=== PATIENT | male | born 1980 | race Caucasian/White ===

== ENCOUNTER 2021-03-10 02:03 | Inpatient (IN) | payer OTHER, SELFPAY ==
[2021-03-10] MEDS ORDERED: Fentanyl 100 MCG/2 ML VIAL ONE (02:14)
[2021-03-10 02:45] LABS: Hemoglobin 14.5 g/dL (14.0-18.0); Mean Corpuscular HGB CONC 34.8 g/dL (32.0-36.0); Mean Corpuscular Hemoglobin 31.2 pg (27.0-31.0); Mean Corpuscular Volume 89.6 fL (78.0-98.0); RBC Distribution Width 11.9 % (11.5-14.5); Red Blood Cell (RBC) Count 4.65 mill/uL (4.70-6.10)
[2021-03-10 02:46] LABS: ALT (SGPT) 86 U/L (8-55); AST (SGOT) 125 U/L (5-34); Albumin 3.9 g/dL (3.5-5.0); Alcohol 143 mg/dL (Less than 10); Alkaline Phosphatase 62 U/L (40-110); Anion Gap 16 mmol/L (10-20); BUN (Urea Nitrogen) 16 mg/dL (8.9-20.6); Bilirubin, Total 0.5 mg/dL (0.2-1.2); Calc. Creatinine Clearance 0 mL/min (70-130); Calcium 8.3 mg/dL (7.8-10.44); Carbon Dioxide 20 mmol/L (22-29); Chloride 107 mmol/L (98-107); Globulin 2.5 g/dL (2.4-3.5); Glucose 151 mg/dL (70-105); Lipase 13 U/L (8-78); Potassium 3.6 mmol/L (3.5-5.1); Protein, Total 6.4 g/dL (6.0-8.3); Sodium 139 mmol/L (136-145)
[2021-03-10] MEDS ORDERED: Ondansetron PF 4 MG/2 ML Vial ONE (02:49)
[2021-03-10] MEDS ORDERED: Morphine 4 MG/ML VIAL ONE ×2 (02:49→04:07)
[2021-03-10 02:54] LABS: Band 30 % (5-11); Lymphocytes 8 % (21-51); MDiff Complete? YES; Mean Platelet Volume 6.5 fL (7.4-10.4); Monocytes 1 % (0-10); Neutrophil 61 % (42-75); Platelet Count 317 thou/uL (130-400); White Blood Cell (WBC) Count 24.3 thou/uL (4.8-10.8)
[2021-03-10] MEDS ORDERED: hydrALAZINE 20 MG/ML VIAL SLOW IVP PRN (04:19)
[2021-03-10] MEDS ORDERED: TETANUS AND DIPHTHERIA TOX/PF 0.5 ML DISP.SYRIN IM ONE (04:19)
[2021-03-10] MEDS ORDERED: Dextrose 50% Abboject 50 ML SYRINGE SLOW IVP PRN (04:19)
[2021-03-10] MEDS ORDERED: Dextrose 5% in Water 1,000 ML IV PRN (04:19)
[2021-03-10] MEDS ORDERED: Cyclobenzaprine 10 MG TAB PO PRN (04:24)
[2021-03-10] MEDS ORDERED: Morphine 4 MG/ML VIAL SLOW IVP PRN (04:30)
[2021-03-10] MEDS: Sodium Chloride 0.9% 1,000 ML IV SCH ×3 (05:08→21:00)
[2021-03-10] MEDS: Acetaminophen 500 MG TAB PO SCH ×5 (05:13→23:58)
[2021-03-10] MEDS: Ketorolac Tromethamine 30 MG/ML VIAL IVP SCH ×3 (05:13→17:32)
[2021-03-10] MEDS: traMADol HCl 50 MG TAB PO SCH ×5 (05:14→23:57)
[2021-03-10 05:19] LABS: SARS-CoV-2 NAA Rapid Test Not Detected (NotDetected)
[2021-03-10 05:20] VITALS: BMI 30.9
[2021-03-10 05:40] LABS: Lactic Acid 2.8 mmol/L (0.5-2.2)
[2021-03-10] MEDS ORDERED: Boostrix 0.5 ML (Tdap) VIAL IM ONE (06:00)
[2021-03-10] MEDS: Senokot S 8.6-50 MG TAB PO SCH ×2 (08:46→20:57)
[2021-03-10] MEDS: Polyethylene Glycol 3350 17 GM Packet PO SCH (08:46)
[2021-03-10] MEDS: Famotidine/PF 20 mg/2ml Vial SLOW IVP SCH ×2 (08:47→20:57)
[2021-03-10] MEDS: Gabapentin 300 MG CAP PO SCH ×3 (08:47→20:57)
[2021-03-10 08:53] LABS: Amphetamine Not Detected (NotDetected); Barbiturates Screen Not Detected (NotDetected); Benzodiazepine Screen Not Detected (NotDetected); Cocaine Metabolite Screen Not Detected (NotDetected); Medtox Control Line Valid? VALID (VALID); Medtox Reader # READER 1; Methadone Not Detected (NotDetected); Methamphetamine Not Detected (NotDetected); Opiate Screen Detected (NotDetected); Oxycodone Screen Not Detected (NotDetected); Phencyclidine (PCP) Not Detected (NotDetected); THC/Cannabinoid Screen Detected (NotDetected); Tricyclic Screen Not Detected (NotDetected)
[2021-03-10] MEDS: Folic Acid 1 MG TAB PO SCH (09:24)
[2021-03-10] MEDS: Thiamine 100 MG TAB PO SCH (09:24)
[2021-03-10] MEDS: Multivit, Therapeutic 1 TAB PO SCH (09:24)
[2021-03-10] MEDS ORDERED: Iopamidol-370 76% 500 ML 1 ML ONE (09:56)
[2021-03-10] MEDS ORDERED: Lidocaine 1% (PF) 30 ML VIAL ONE (11:03)
[2021-03-10] MEDS ORDERED: Ketorolac Tromethamine 30 MG/ML VIAL IVP SCH (11:30)
[2021-03-10] MEDS: traMADol HCl 50 MG TAB PO PRN (18:44)
[2021-03-11 03:53] LABS: #Eosinphils 0.1 thou/uL (0.0-0.7); #Lymphocytes 1.7 thou/uL (1.20-3.40); #Monocytes 0.9 thou/uL (0.11-0.59); #Neutrophils 6.7 thou/uL (1.40-6.50); %Basophils 0.1 % (0.0-1.0); %Eosinophils 0.5 % (0.0-10.0); %Lymphocytes 18.4 % (21.0-51.0); %Monocytes 9.8 % (0.0-10.0); %Neutrophils 71.2 % (42.0-75.0); Hemoglobin 11.7 g/dL (14.0-18.0); Mean Corpuscular HGB CONC 33.9 g/dL (32.0-36.0); Mean Corpuscular Hemoglobin 30.8 pg (27.0-31.0); Mean Corpuscular Volume 90.9 fL (78.0-98.0); Mean Platelet Volume 6.5 fL (7.4-10.4); Platelet Count 188 thou/uL (130-400); RBC Distribution Width 12.4 % (11.5-14.5); Red Blood Cell (RBC) Count 3.79 mill/uL (4.70-6.10); White Blood Cell (WBC) Count 9.4 thou/uL (4.8-10.8)
[2021-03-11] MEDS: traMADol HCl 50 MG TAB PO PRN (04:08)
[2021-03-11 04:13] LABS: Anion Gap 11 mmol/L (10-20); BUN (Urea Nitrogen) 15 mg/dL (8.9-20.6); Calc. Creatinine Clearance 207 mL/min (70-130); Carbon Dioxide 24 mmol/L (22-29); Chloride 109 mmol/L (98-107); Glucose 127 mg/dL (70-105); Magnesium 2.3 mg/dL (1.6-2.6); Phosphorus 2.7 mg/dL (2.3-4.7); Potassium 4.2 mmol/L (3.5-5.1); Sodium 140 mmol/L (136-145)
[2021-03-11] MEDS: traMADol HCl 50 MG TAB PO SCH ×3 (06:16→17:23)
[2021-03-11] MEDS: Acetaminophen 500 MG TAB PO SCH ×3 (06:17→17:24)
[2021-03-11] MEDS: Sodium Chloride 0.9% 1,000 ML IV SCH (06:17)
[2021-03-11] MEDS: Senokot S 8.6-50 MG TAB PO SCH ×2 (08:16→22:29)
[2021-03-11] MEDS: Gabapentin 300 MG CAP PO SCH (08:16)
[2021-03-11] MEDS: Famotidine/PF 20 mg/2ml Vial SLOW IVP SCH (08:16)
[2021-03-11] MEDS: Polyethylene Glycol 3350 17 GM Packet PO SCH (08:16)
[2021-03-11] MEDS: Multivit, Therapeutic 1 TAB PO SCH (08:17)
[2021-03-11] MEDS: Thiamine 100 MG TAB PO SCH (08:17)
[2021-03-11] MEDS: Folic Acid 1 MG TAB PO SCH (08:17)
[2021-03-11] MEDS ORDERED: Enoxaparin Sodium 40 MG/0.4 ML SYRINGE SC SCH (09:00)
[2021-03-11] MEDS: Famotidine 20 MG TAB PO SCH ×2 (09:18→22:29)
[2021-03-11] MEDS: Ondansetron PF 4 MG/2 ML Vial IVP PRN (13:02)
[2021-03-11] MEDS ORDERED: Ibuprofen 200 MG TAB PO SCH (14:00)
[2021-03-11] MEDS: Ketorolac Tromethamine 30 MG/ML VIAL IVP SCH (17:23)
[2021-03-11] MEDS: Pregabalin 75 MG CAP PO SCH (22:28)
[2021-03-12] MEDS: traMADol HCl 50 MG TAB PO SCH ×5 (00:29→23:23)
[2021-03-12] MEDS: Acetaminophen 500 MG TAB PO SCH ×5 (00:30→23:22)
[2021-03-12] MEDS: Ketorolac Tromethamine 30 MG/ML VIAL IVP SCH ×2 (00:30→05:09)
[2021-03-12 07:02] LABS: #Eosinphils 0.1 thou/uL (0.0-0.7); #Lymphocytes 2.2 thou/uL (1.20-3.40); #Monocytes 0.9 thou/uL (0.11-0.59); #Neutrophils 8.2 thou/uL (1.40-6.50); %Basophils 0.1 % (0.0-1.0); %Eosinophils 0.5 % (0.0-10.0); %Lymphocytes 19.3 % (21.0-51.0); %Neutrophils 72.1 % (42.0-75.0); Hemoglobin 9.5 g/dL (14.0-18.0); Mean Corpuscular HGB CONC 34.7 g/dL (32.0-36.0); Mean Corpuscular Hemoglobin 31.5 pg (27.0-31.0); Mean Corpuscular Volume 90.8 fL (78.0-98.0); Mean Platelet Volume 6.6 fL (7.4-10.4); Platelet Count 222 thou/uL (130-400); RBC Distribution Width 12.3 % (11.5-14.5); Red Blood Cell (RBC) Count 3.01 mill/uL (4.70-6.10); White Blood Cell (WBC) Count 11.3 thou/uL (4.8-10.8)
[2021-03-12 07:26] LABS: Anion Gap 11 mmol/L (10-20); BUN (Urea Nitrogen) 20 mg/dL (8.9-20.6); Calc. Creatinine Clearance 210 mL/min (70-130); Calcium 8.3 mg/dL (7.8-10.44); Carbon Dioxide 26 mmol/L (22-29); Chloride 107 mmol/L (98-107); Glucose 111 mg/dL (70-105); Potassium 4.3 mmol/L (3.5-5.1); Sodium 140 mmol/L (136-145)
[2021-03-12] MEDS: Polyethylene Glycol 3350 17 GM Packet PO SCH (08:25)
[2021-03-12] MEDS: Enoxaparin Sodium 40 MG/0.4 ML SYRINGE SC SCH (08:25)
[2021-03-12] MEDS: Ibuprofen 200 MG TAB PO SCH ×3 (08:26→20:57)
[2021-03-12] MEDS: Folic Acid 1 MG TAB PO SCH (08:26)
[2021-03-12] MEDS: Senokot S 8.6-50 MG TAB PO SCH ×2 (08:26→20:57)
[2021-03-12] MEDS: Multivit, Therapeutic 1 TAB PO SCH (08:26)
[2021-03-12] MEDS: Famotidine 20 MG TAB PO SCH ×2 (08:26→20:57)
[2021-03-12] MEDS: Thiamine 100 MG TAB PO SCH (08:26)
[2021-03-12] MEDS: Pregabalin 75 MG CAP PO SCH ×2 (08:27→20:56)
[2021-03-12] MEDS: cloNIDine 0.1 MG TAB PO SCH ×3 (11:47→23:23)
[2021-03-13] MEDS: Ibuprofen 200 MG TAB PO SCH ×4 (02:33→19:52)
[2021-03-13] MEDS: traMADol HCl 50 MG TAB PO SCH ×4 (05:29→23:33)
[2021-03-13] MEDS: Acetaminophen 500 MG TAB PO SCH ×4 (05:30→23:33)
[2021-03-13] MEDS: cloNIDine 0.1 MG TAB PO SCH ×4 (05:30→23:34)
[2021-03-13 05:52] LABS: #Eosinphils 0.3 thou/uL (0.0-0.7); #Lymphocytes 2.3 thou/uL (1.20-3.40); #Monocytes 0.7 thou/uL (0.11-0.59); #Neutrophils 6.6 thou/uL (1.40-6.50); %Basophils 0.2 % (0.0-1.0); %Eosinophils 2.6 % (0.0-10.0); %Lymphocytes 23.3 % (21.0-51.0); %Monocytes 7.2 % (0.0-10.0); %Neutrophils 66.7 % (42.0-75.0); Hemoglobin 9.3 g/dL (14.0-18.0); Mean Corpuscular HGB CONC 33.3 g/dL (32.0-36.0); Mean Platelet Volume 6.4 fL (7.4-10.4); Platelet Count 267 thou/uL (130-400); RBC Distribution Width 12.6 % (11.5-14.5); Red Blood Cell (RBC) Count 2.99 mill/uL (4.70-6.10); White Blood Cell (WBC) Count 9.8 thou/uL (4.8-10.8)
[2021-03-13] MEDS: Thiamine 100 MG TAB PO SCH (08:24)
[2021-03-13] MEDS: Folic Acid 1 MG TAB PO SCH (08:24)
[2021-03-13] MEDS: Senokot S 8.6-50 MG TAB PO SCH ×2 (08:24→19:53)
[2021-03-13] MEDS: Famotidine 20 MG TAB PO SCH ×2 (08:24→19:52)
[2021-03-13] MEDS: Multivit, Therapeutic 1 TAB PO SCH (08:24)
[2021-03-13] MEDS: Enoxaparin Sodium 40 MG/0.4 ML SYRINGE SC SCH (08:25)
[2021-03-13] MEDS: Pregabalin 75 MG CAP PO SCH ×2 (08:25→19:52)
[2021-03-13] MEDS: Polyethylene Glycol 3350 17 GM Packet PO SCH (08:26)
[2021-03-13] MEDS ORDERED: Lidocaine 1% (PF) 30 ML VIAL ONE (09:09)
[2021-03-13] MEDS ORDERED: Lidocaine 1% (PF) 30 ML VIAL SC SCH (09:15)
[2021-03-13] MEDS ORDERED: Morphine 4 MG/ML VIAL SLOW IVP SCH (09:15)
[2021-03-13] MEDS ORDERED: CEFAZOLIN 1 GM VIAL SLOW IVP SCH (12:45)
[2021-03-13] MEDS ORDERED: Ketorolac Tromethamine 30 MG/ML VIAL IVP SCH (12:45)
[2021-03-13] MEDS ORDERED: CEFAZOLIN 2 GM in Premix Bag 1 BAG IVPB SCH (14:00)
[2021-03-13] MEDS: Cyclobenzaprine 10 MG TAB PO PRN ×2 (14:21→19:51)
[2021-03-13] MEDS: Ketorolac Tromethamine 30 MG/ML VIAL IVP SCH (20:33)
[2021-03-14] MEDS: Ibuprofen 200 MG TAB PO SCH ×4 (02:22→20:35)
[2021-03-14] MEDS: cloNIDine 0.1 MG TAB PO SCH ×4 (05:14→23:32)
[2021-03-14] MEDS: Acetaminophen 500 MG TAB PO SCH ×4 (05:14→23:30)
[2021-03-14] MEDS: traMADol HCl 50 MG TAB PO SCH ×4 (05:14→23:31)
[2021-03-14] MEDS: Thiamine 100 MG TAB PO SCH (08:19)
[2021-03-14] MEDS: Pregabalin 75 MG CAP PO SCH ×2 (08:19→20:35)
[2021-03-14] MEDS: Folic Acid 1 MG TAB PO SCH (08:20)
[2021-03-14] MEDS: Senokot S 8.6-50 MG TAB PO SCH ×2 (08:20→20:34)
[2021-03-14] MEDS: Multivit, Therapeutic 1 TAB PO SCH (08:20)
[2021-03-14] MEDS: Famotidine 20 MG TAB PO SCH ×2 (08:20→20:35)
[2021-03-14] MEDS: Polyethylene Glycol 3350 17 GM Packet PO SCH (08:21)
[2021-03-14] MEDS: Enoxaparin Sodium 40 MG/0.4 ML SYRINGE SC SCH (08:21)
[2021-03-14] MEDS: Cyclobenzaprine 10 MG TAB PO PRN ×2 (08:28→20:34)
[2021-03-14] MEDS ORDERED: Ondansetron ODT 8 MG TAB SL PRN (17:28)
[2021-03-14] MEDS: Ketorolac Tromethamine 30 MG/ML VIAL IVP SCH (20:32)
[2021-03-15] MEDS: Promethazine HCl 25 MG/ML VIAL IM PRN ×5 (03:13→22:46)
[2021-03-15] MEDS: Ibuprofen 200 MG TAB PO SCH ×4 (03:13→20:04)
[2021-03-15] MEDS: Ondansetron ODT 8 MG TAB SL PRN ×2 (06:43→20:05)
[2021-03-15] MEDS: cloNIDine 0.1 MG TAB PO SCH ×4 (06:44→22:47)
[2021-03-15] MEDS: traMADol HCl 50 MG TAB PO SCH ×4 (06:44→22:47)
[2021-03-15] MEDS: Acetaminophen 500 MG TAB PO SCH ×4 (06:45→22:47)
[2021-03-15] MEDS: Famotidine 20 MG TAB PO SCH ×2 (07:46→20:04)
[2021-03-15] MEDS: Senokot S 8.6-50 MG TAB PO SCH ×2 (07:46→20:04)
[2021-03-15] MEDS: Pregabalin 75 MG CAP PO SCH ×2 (07:46→20:04)
[2021-03-15] MEDS: Multivit, Therapeutic 1 TAB PO SCH (07:46)
[2021-03-15] MEDS: Thiamine 100 MG TAB PO SCH (07:46)
[2021-03-15] MEDS: Enoxaparin Sodium 40 MG/0.4 ML SYRINGE SC SCH (07:47)
[2021-03-15] MEDS: Polyethylene Glycol 3350 17 GM Packet PO SCH (07:47)
[2021-03-15] MEDS: Folic Acid 1 MG TAB PO SCH (07:47)
[2021-03-15] MEDS: Cyclobenzaprine 10 MG TAB PO PRN ×2 (09:14→16:08)
[2021-03-15] MEDS: Lactated Ringer's 1,000 ML IV SCH ×2 (13:03→22:48)
[2021-03-15] MEDS: Ketorolac Tromethamine 30 MG/ML VIAL IVP SCH (19:26)
[2021-03-16] MEDS ORDERED: Chloraseptic Spray 180 ml Bottle PO PRN (00:02)
[2021-03-16] MEDS ORDERED: Ketorolac Tromethamine 30 MG/ML VIAL IVP SCH (00:15)
[2021-03-16] MEDS: Morphine 2 MG/ML VIAL SLOW IVP PRN ×4 (00:16→23:59)
[2021-03-16] MEDS: Ondansetron PF 4 MG/2 ML Vial IVP PRN (00:31)
[2021-03-16] MEDS: traMADol HCl 50 MG TAB PO SCH ×4 (06:04→23:18)
[2021-03-16] MEDS: Ketorolac Tromethamine 30 MG/ML VIAL IVP SCH ×3 (06:04→17:15)
[2021-03-16] MEDS: cloNIDine 0.1 MG TAB PO SCH ×4 (06:04→23:18)
[2021-03-16] MEDS: Acetaminophen 500 MG TAB PO SCH ×4 (06:04→23:18)
[2021-03-16 06:12] LABS: #Eosinphils 0.1 thou/uL (0.0-0.7); #Lymphocytes 1.1 thou/uL (1.20-3.40); #Monocytes 1.7 thou/uL (0.11-0.59); #Neutrophils 13.8 thou/uL (1.40-6.50); %Basophils 0.2 % (0.0-1.0); %Eosinophils 0.8 % (0.0-10.0); %Lymphocytes 6.8 % (21.0-51.0); %Monocytes 9.9 % (0.0-10.0); %Neutrophils 82.4 % (42.0-75.0); Hemoglobin 10.8 g/dL (14.0-18.0); Mean Corpuscular HGB CONC 34.8 g/dL (32.0-36.0); Mean Corpuscular Hemoglobin 31.9 pg (27.0-31.0); Mean Corpuscular Volume 91.7 fL (78.0-98.0); Mean Platelet Volume 5.8 fL (7.4-10.4); Platelet Count 399 thou/uL (130-400); RBC Distribution Width 13.1 % (11.5-14.5); Red Blood Cell (RBC) Count 3.38 mill/uL (4.70-6.10); White Blood Cell (WBC) Count 16.7 thou/uL (4.8-10.8)
[2021-03-16 06:32] LABS: Anion Gap 13 mmol/L (10-20); BUN (Urea Nitrogen) 28 mg/dL (8.9-20.6); Calc. Creatinine Clearance 192 mL/min (70-130); Calcium 8.6 mg/dL (7.8-10.44); Carbon Dioxide 27 mmol/L (22-29); Chloride 104 mmol/L (98-107); Glucose 114 mg/dL (70-105); Phosphorus 4.8 mg/dL (2.3-4.7); Potassium 4.2 mmol/L (3.5-5.1); Sodium 140 mmol/L (136-145)
[2021-03-16] MEDS: Enoxaparin Sodium 40 MG/0.4 ML SYRINGE SC SCH (08:23)
[2021-03-16] MEDS: Pregabalin 75 MG CAP PO SCH ×2 (08:23→23:18)
[2021-03-16] MEDS: Famotidine 20 MG TAB PO SCH ×2 (08:23→23:18)
[2021-03-16] MEDS: Thiamine 100 MG TAB PO SCH (08:23)
[2021-03-16] MEDS: Multivit, Therapeutic 1 TAB PO SCH (08:23)
[2021-03-16] MEDS: Folic Acid 1 MG TAB PO SCH (08:23)
[2021-03-16] MEDS: Polyethylene Glycol 3350 17 GM Packet PO SCH (08:23)
[2021-03-16] MEDS: Senokot S 8.6-50 MG TAB PO SCH ×2 (08:23→23:18)
[2021-03-16] MEDS: Lactated Ringer's 1,000 ML IV SCH ×2 (08:56→17:15)
[2021-03-17] MEDS ORDERED: Morphine 2 MG/ML VIAL SLOW IVP SCH (01:00)
[2021-03-17] MEDS ORDERED: Morphine 4 MG/ML VIAL ONE (01:04)
[2021-03-17] MEDS ORDERED: Lactated Ringer's 500 ML IV SCH (01:30)
[2021-03-17] MEDS ORDERED: cefTRIAXone\\ROCEPHIN 1 GM in Sodium Chloride 0.9% 100 ML IVPB SCH (01:30)
[2021-03-17 01:31] LABS: Mean Corpuscular HGB CONC 34.7 g/dL (32.0-36.0); Mean Corpuscular Hemoglobin 32.2 pg (27.0-31.0); Mean Corpuscular Volume 92.7 fL (78.0-98.0); Mean Platelet Volume 5.9 fL (7.4-10.4); Platelet Count 417 thou/uL (130-400); RBC Distribution Width 13.4 % (11.5-14.5); Red Blood Cell (RBC) Count 3.12 mill/uL (4.70-6.10); White Blood Cell (WBC) Count 20.2 thou/uL (4.8-10.8)
[2021-03-17 01:42] LABS: Anion Gap 12 mmol/L (10-20); BUN (Urea Nitrogen) 28 mg/dL (8.9-20.6); Calc. Creatinine Clearance 177 mL/min (70-130); Calcium 8.5 mg/dL (7.8-10.44); Carbon Dioxide 32 mmol/L (22-29); Chloride 103 mmol/L (98-107); Glucose 119 mg/dL (70-105); Magnesium 2.1 mg/dL (1.6-2.6); Phosphorus 3.8 mg/dL (2.3-4.7); Potassium 3.9 mmol/L (3.5-5.1); Sodium 143 mmol/L (136-145)
[2021-03-17 01:44] LABS: Band 20 % (5-11); Eosinophils 1 % (0-10); Lymphocytes 3 % (21-51); MDiff Complete? YES; Monocytes 7 % (0-10); Neutrophil 69 % (42-75); Polychromasia SLIGHT = 2-3 cells (100X) (0-2/hpf); Toxic Granulation SLIGHT
[2021-03-17] MEDS ORDERED: Ketorolac Tromethamine 30 MG/ML VIAL IVP SCH (02:00)
[2021-03-17] MEDS: Morphine 4 MG/ML VIAL SLOW IVP PRN ×4 (06:11→21:23)
[2021-03-17] MEDS: Ketorolac Tromethamine 30 MG/ML VIAL IVP SCH ×5 (06:11→23:31)
[2021-03-17] MEDS: Acetaminophen 500 MG TAB PO SCH ×3 (06:29→17:32)
[2021-03-17] MEDS: Lactated Ringer's 1,000 ML IV SCH ×2 (06:29→18:10)
[2021-03-17] MEDS: traMADol HCl 50 MG TAB PO SCH ×3 (06:29→17:32)
[2021-03-17] MEDS: cloNIDine 0.1 MG TAB PO SCH ×3 (06:29→17:32)
[2021-03-17] MEDS: Enoxaparin Sodium 40 MG/0.4 ML SYRINGE SC SCH (09:54)
[2021-03-17] MEDS: Multivit, Therapeutic 1 TAB PO SCH (13:15)
[2021-03-17] MEDS: Senokot S 8.6-50 MG TAB PO SCH ×2 (13:15→22:17)
[2021-03-17] MEDS: Folic Acid 1 MG TAB PO SCH (13:15)
[2021-03-17] MEDS: Famotidine 20 MG TAB PO SCH ×2 (13:15→22:17)
[2021-03-17] MEDS: Polyethylene Glycol 3350 17 GM Packet PO SCH (13:15)
[2021-03-17] MEDS: Pregabalin 75 MG CAP PO SCH ×2 (13:15→22:17)
[2021-03-17] MEDS: Thiamine 100 MG TAB PO SCH (13:15)
[2021-03-17] MEDS: Piperacillin/Tazobactam 4.5 GM in Sodium Chloride 0.9% 100 ML IVPB SCH ×3 (13:25→23:30)
[2021-03-18] MEDS: Lactated Ringer's 1,000 ML IV SCH (00:44)
[2021-03-18] MEDS: cloNIDine 0.1 MG TAB PO SCH ×4 (01:11→15:31)
[2021-03-18] MEDS: Acetaminophen 500 MG TAB PO SCH ×5 (01:11→22:52)
[2021-03-18] MEDS: traMADol HCl 50 MG TAB PO SCH ×5 (01:11→22:51)
[2021-03-18] MEDS: Morphine 4 MG/ML VIAL SLOW IVP PRN ×3 (04:39→22:53)
[2021-03-18] MEDS: Piperacillin/Tazobactam 4.5 GM in Sodium Chloride 0.9% 100 ML IVPB SCH ×4 (04:40→22:52)
[2021-03-18] MEDS: Ketorolac Tromethamine 30 MG/ML VIAL IVP SCH (04:40)
[2021-03-18 06:08] LABS: Anion Gap 15 mmol/L (10-20); BUN (Urea Nitrogen) 37 mg/dL (8.9-20.6); Calc. Creatinine Clearance 159 mL/min (70-130); Calcium 8.4 mg/dL (7.8-10.44); Carbon Dioxide 36 mmol/L (22-29); Chloride 102 mmol/L (98-107); Glucose 109 mg/dL (70-105); Magnesium 2.7 mg/dL (1.6-2.6); Phosphorus 4.3 mg/dL (2.3-4.7); Potassium 3.1 mmol/L (3.5-5.1); Sodium 150 mmol/L (136-145)
[2021-03-18 06:14] LABS: Band 48 % (5-11); Hemoglobin 8.9 g/dL (14.0-18.0); Lymphocytes 4 % (21-51); MDiff Complete? YES; Mean Corpuscular Hemoglobin 31.3 pg (27.0-31.0); Mean Platelet Volume 6.4 fL (7.4-10.4); Monocytes 3 % (0-10); Neutrophil 45 % (42-75); Platelet Count 394 thou/uL (130-400); Red Blood Cell (RBC) Count 2.84 mill/uL (4.70-6.10)
[2021-03-18] MEDS ORDERED: Ondansetron PF 4 MG/2 ML Vial ONE ×2 (08:32→10:08)
[2021-03-18] MEDS ORDERED: Fentanyl 100 MCG/2 ML VIAL ONE ×3 (09:04→12:22)
[2021-03-18] MEDS ORDERED: Dexamethasone 4 mg/ml Vial ONE (09:18)
[2021-03-18] MEDS ORDERED: Bupivacaine PF 0.5% 30 ML VIAL ONE (09:18)
[2021-03-18] MEDS ORDERED: EPINEPHrine 1 MG/ML AMP ONE (09:18)
[2021-03-18] MEDS ORDERED: Fentanyl 250 MCG/5 ML VIAL ONE (09:31)
[2021-03-18] MEDS ORDERED: Succinylcholine 200 MG/10 ml SYRINGE FS ONE (10:08)
[2021-03-18] MEDS ORDERED: PROPOFOL 200 MG/20 ML VIAL ONE (10:08)
[2021-03-18] MEDS ORDERED: Glycopyrrolate 0.2 MG/ML 5 ML SYRINGE ONE (10:08)
[2021-03-18] MEDS ORDERED: Dexamethasone 20 MG/5 ML VIAL ONE (10:08)
[2021-03-18] MEDS ORDERED: Rocuronium Bromide 10 MG/ML (10ML VIAL) ONE (10:08)
[2021-03-18] MEDS ORDERED: Lidocaine 1% PF 5 ML VIAL ONE (10:08)
[2021-03-18] MEDS: Potassium Chloride 20 MEQ in Premix Bag 1 BAG IVPB SCH ×3 (11:19→15:34)
[2021-03-18] MEDS: Enoxaparin Sodium 40 MG/0.4 ML SYRINGE SC SCH (11:19)
[2021-03-18] MEDS: D5 1/2 NS w/20 mEq KCL 1,000 ML IV SCH ×2 (11:19→13:01)
[2021-03-18] MEDS: Folic Acid 1 MG TAB PO SCH (11:20)
[2021-03-18] MEDS: Multivit, Therapeutic 1 TAB PO SCH (11:20)
[2021-03-18] MEDS: Polyethylene Glycol 3350 17 GM Packet PO SCH (11:20)
[2021-03-18] MEDS: Famotidine 20 MG TAB PO SCH ×2 (11:20→22:51)
[2021-03-18] MEDS: Pregabalin 75 MG CAP PO SCH ×2 (11:20→22:52)
[2021-03-18] MEDS: Senokot S 8.6-50 MG TAB PO SCH ×2 (11:21→22:51)
[2021-03-18] MEDS: Thiamine 100 MG TAB PO SCH (11:21)
[2021-03-18] MEDS: VANCOMYCIN 1.25 GM/250 ML BAG 1.25 GM in Premix Bag 1 BAG IVPB SCH ×2 (11:21→17:35)
[2021-03-18] MEDS ORDERED: Ondansetron HCl/PF 4 MG/2 ML Vial IVP PRN (11:51)
[2021-03-18] MEDS ORDERED: Promethazine HCl 25 MG/ML VIAL SLOW IVP PRN (11:51)
[2021-03-18] MEDS ORDERED: HYDROmorphone 2 MG/ML VIAL SLOW IVP PRN (11:51)
[2021-03-18] MEDS ORDERED: Promethazine HCl 25 MG/ML VIAL IM PRN (11:51)
[2021-03-18] MEDS: Neostigmine 0.5 MG in Admixture Fee 1 EACH SC SCH ×2 (12:58→17:44)
[2021-03-18] MEDS: Morphine 2 MG/ML VIAL SLOW IVP PRN (13:30)
[2021-03-19] MEDS: VANCOMYCIN 1.25 GM/250 ML BAG 1.25 GM in Premix Bag 1 BAG IVPB SCH ×2 (00:56→08:30)
[2021-03-19] MEDS: cloNIDine 0.1 MG TAB PO SCH ×4 (00:57→18:31)
[2021-03-19] MEDS: Neostigmine 0.5 MG in Admixture Fee 1 EACH SC SCH ×2 (00:57→06:44)
[2021-03-19] MEDS: D5 1/2 NS w/20 mEq KCL 1,000 ML IV SCH ×4 (04:30→22:17)
[2021-03-19] MEDS: traMADol HCl 50 MG TAB PO SCH ×3 (06:44→18:32)
[2021-03-19] MEDS: Acetaminophen 500 MG TAB PO SCH ×3 (06:44→18:31)
[2021-03-19] MEDS: Piperacillin/Tazobactam 4.5 GM in Sodium Chloride 0.9% 100 ML IVPB SCH (06:45)
[2021-03-19] MEDS: Senokot S 8.6-50 MG TAB PO SCH ×2 (08:27→22:13)
[2021-03-19] MEDS: Enoxaparin Sodium 40 MG/0.4 ML SYRINGE SC SCH (08:27)
[2021-03-19] MEDS: Famotidine 20 MG TAB PO SCH (08:27)
[2021-03-19] MEDS: Pregabalin 75 MG CAP PO SCH ×2 (08:27→22:12)
[2021-03-19] MEDS: Multivit, Therapeutic 1 TAB PO SCH (08:28)
[2021-03-19] MEDS: Folic Acid 1 MG TAB PO SCH (08:28)
[2021-03-19] MEDS: Thiamine 100 MG TAB PO SCH (08:29)
[2021-03-19] MEDS: Morphine 4 MG/ML VIAL SLOW IVP PRN ×2 (08:32→16:58)
[2021-03-19 08:43] LABS: Vancomycin, Trough 11.1 ug/mL
[2021-03-19 08:49] LABS: Anion Gap 11 mmol/L (10-20); BUN (Urea Nitrogen) 31 mg/dL (8.9-20.6); Calc. Creatinine Clearance 198 mL/min (70-130); Calcium 8.1 mg/dL (7.8-10.44); Carbon Dioxide 33 mmol/L (22-29); Chloride 109 mmol/L (98-107); Glucose 127 mg/dL (70-105); Magnesium 2.5 mg/dL (1.6-2.6); Phosphorus 3.3 mg/dL (2.3-4.7); Potassium 3.6 mmol/L (3.5-5.1); Sodium 149 mmol/L (136-145)
[2021-03-19 09:03] LABS: Band 10 % (5-11); Hemoglobin 8.3 g/dL (14.0-18.0); Lymphocytes 5 % (21-51); MDiff Complete? YES; Mean Corpuscular HGB CONC 32.6 g/dL (32.0-36.0); Mean Platelet Volume 6.6 fL (7.4-10.4); Monocytes 3 % (0-10); Neutrophil 81 % (42-75); Platelet Count 418 thou/uL (130-400); Platelet Morphology Comment Appears Increased; RBC Morphology Normal; Reactive Lymphocytes 1 % (0-10); Red Blood Cell (RBC) Count 2.67 mill/uL (4.70-6.10); White Blood Cell (WBC) Count 19.7 thou/uL (4.8-10.8)
[2021-03-19] MEDS: cefTRIAXone\\ROCEPHIN 2 GM in Sodium Chloride 0.9% 100 ML IVPB SCH (09:23)
[2021-03-19] MEDS: Polyethylene Glycol 3350 17 GM Packet PO SCH (11:32)
[2021-03-19] MEDS ORDERED: Vancomycin 1.5 GRAM/300 ML BAG 1.5 GM in Premix Bag 1 BAG IVPB SCH (17:00)
[2021-03-19] MEDS: Pantoprazole 40 MG VIAL IVP SCH (22:14)
[2021-03-20] MEDS: Acetaminophen 500 MG TAB PO SCH ×4 (00:05→17:59)
[2021-03-20] MEDS: traMADol HCl 50 MG TAB PO SCH ×4 (00:05→17:59)
[2021-03-20] MEDS: cloNIDine 0.1 MG TAB PO SCH ×4 (00:06→17:58)
[2021-03-20] MEDS: D5 1/2 NS w/20 mEq KCL 1,000 ML IV SCH ×3 (05:47→19:18)
[2021-03-20] MEDS: Morphine 4 MG/ML VIAL SLOW IVP PRN (05:56)
[2021-03-20] MEDS: Sulfameth/Trimethoprim DS 800-160mg TAB PO SCH ×2 (09:50→20:51)
[2021-03-20] MEDS: Pregabalin 75 MG CAP PO SCH ×2 (09:50→20:50)
[2021-03-20] MEDS: Enoxaparin Sodium 40 MG/0.4 ML SYRINGE SC SCH (09:50)
[2021-03-20] MEDS: Senokot S 8.6-50 MG TAB PO SCH ×2 (09:51→20:50)
[2021-03-20] MEDS: Thiamine 100 MG TAB PO SCH (09:51)
[2021-03-20] MEDS: Folic Acid 1 MG TAB PO SCH (09:51)
[2021-03-20] MEDS: Pantoprazole 40 MG VIAL IVP SCH ×2 (09:51→20:52)
[2021-03-20] MEDS: Multivit, Therapeutic 1 TAB PO SCH (09:51)
[2021-03-20] MEDS: cefTRIAXone\\ROCEPHIN 2 GM in Sodium Chloride 0.9% 100 ML IVPB SCH (09:52)
[2021-03-20] MEDS: Polyethylene Glycol 3350 17 GM Packet PO SCH (09:53)
[2021-03-20] MEDS: Cyclobenzaprine 10 MG TAB PO PRN (16:32)
[2021-03-21] MEDS: cloNIDine 0.1 MG TAB PO SCH ×4 (00:14→17:44)
[2021-03-21] MEDS: traMADol HCl 50 MG TAB PO SCH ×4 (00:15→17:45)
[2021-03-21] MEDS: Acetaminophen 500 MG TAB PO SCH ×4 (00:16→17:44)
[2021-03-21] MEDS: Cyclobenzaprine 10 MG TAB PO PRN (03:50)
[2021-03-21] MEDS: D5 1/2 NS w/20 mEq KCL 1,000 ML IV SCH ×2 (06:39→09:21)
[2021-03-21] MEDS: Polyethylene Glycol 3350 17 GM Packet PO SCH (09:22)
[2021-03-21] MEDS: Multivit, Therapeutic 1 TAB PO SCH (09:23)
[2021-03-21] MEDS: Folic Acid 1 MG TAB PO SCH (09:23)
[2021-03-21] MEDS: Senokot S 8.6-50 MG TAB PO SCH ×2 (09:23→20:44)
[2021-03-21] MEDS: Pregabalin 75 MG CAP PO SCH ×2 (09:24→20:44)
[2021-03-21] MEDS: Sulfameth/Trimethoprim DS 800-160mg TAB PO SCH ×2 (09:24→20:44)
[2021-03-21] MEDS: Thiamine 100 MG TAB PO SCH (09:24)
[2021-03-21] MEDS: Enoxaparin Sodium 40 MG/0.4 ML SYRINGE SC SCH (09:24)
[2021-03-21] MEDS: Pantoprazole 40 MG VIAL IVP SCH ×2 (09:25→20:45)
[2021-03-22] MEDS ORDERED: traMADol HCl 50 MG TAB PO SCH (00:30)
[2021-03-22] MEDS: Acetaminophen 500 MG TAB PO SCH ×5 (00:46→23:15)
[2021-03-22] MEDS: traMADol HCl 50 MG TAB PO SCH ×5 (00:47→23:16)
[2021-03-22] MEDS: cloNIDine 0.1 MG TAB PO SCH ×5 (00:53→23:17)
[2021-03-22 06:39] LABS: #Eosinphils 0.4 thou/uL (0.0-0.7); #Lymphocytes 2.2 thou/uL (1.20-3.40); #Monocytes 1.5 thou/uL (0.11-0.59); #Neutrophils 14.1 thou/uL (1.40-6.50); %Basophils 0.2 % (0.0-1.0); %Eosinophils 2.2 % (0.0-10.0); %Lymphocytes 11.9 % (21.0-51.0); %Monocytes 8.1 % (0.0-10.0); %Neutrophils 77.6 % (42.0-75.0); Hemoglobin 8.5 g/dL (14.0-18.0); Mean Corpuscular Hemoglobin 30.6 pg (27.0-31.0); Mean Corpuscular Volume 92.7 fL (78.0-98.0); Mean Platelet Volume 6.6 fL (7.4-10.4); Platelet Count 510 thou/uL (130-400); RBC Distribution Width 13.8 % (11.5-14.5); Red Blood Cell (RBC) Count 2.77 mill/uL (4.70-6.10); White Blood Cell (WBC) Count 18.2 thou/uL (4.8-10.8)
[2021-03-22 07:02] LABS: Anion Gap 10 mmol/L (10-20); BUN (Urea Nitrogen) 14 mg/dL (8.9-20.6); Calc. Creatinine Clearance 216 mL/min (70-130); Calcium 7.8 mg/dL (7.8-10.44); Carbon Dioxide 23 mmol/L (22-29); Chloride 105 mmol/L (98-107); Glucose 80 mg/dL (70-105); Magnesium 1.9 mg/dL (1.6-2.6); Phosphorus 3.7 mg/dL (2.3-4.7); Potassium 4.3 mmol/L (3.5-5.1); Sodium 134 mmol/L (136-145)
[2021-03-22] MEDS: Multivit, Therapeutic 1 TAB PO SCH (08:51)
[2021-03-22] MEDS: Ascorbic Acid 500 mg Chewable Tablet PO SCH ×2 (08:52→20:39)
[2021-03-22] MEDS: Ibuprofen 200 MG TAB PO SCH ×3 (08:52→20:40)
[2021-03-22] MEDS: Saccharomyces boulardii 250 MG CAP PO SCH (08:52)
[2021-03-22] MEDS: Ferrous Sulfate 325 MG TAB PO SCH ×2 (08:52→17:43)
[2021-03-22] MEDS: Folic Acid 1 MG TAB PO SCH (08:52)
[2021-03-22] MEDS: Thiamine 100 MG TAB PO SCH (08:52)
[2021-03-22] MEDS: Pregabalin 75 MG CAP PO SCH ×2 (08:53→20:41)
[2021-03-22] MEDS: Pantoprazole 40 MG VIAL IVP SCH ×2 (08:53→20:41)
[2021-03-22] MEDS: Senokot S 8.6-50 MG TAB PO SCH ×2 (08:54→20:38)
[2021-03-22] MEDS: Enoxaparin Sodium 40 MG/0.4 ML SYRINGE SC SCH (08:54)
[2021-03-22] MEDS: Sulfameth/Trimethoprim DS 800-160mg TAB PO SCH ×2 (08:54→20:39)
[2021-03-22] MEDS: Cyclobenzaprine 10 MG TAB PO PRN ×2 (08:54→22:27)
[2021-03-22] MEDS: Polyethylene Glycol 3350 17 GM Packet PO SCH (08:58)
[2021-03-23] MEDS: Ibuprofen 200 MG TAB PO SCH ×4 (03:27→20:20)
[2021-03-23] MEDS: Acetaminophen 500 MG TAB PO SCH ×4 (05:23→23:32)
[2021-03-23] MEDS: traMADol HCl 50 MG TAB PO SCH ×4 (05:23→23:32)
[2021-03-23] MEDS: cloNIDine 0.1 MG TAB PO SCH ×4 (05:24→23:32)
[2021-03-23 08:23] LABS: #Eosinphils 0.4 thou/uL (0.0-0.7); #Lymphocytes 1.8 thou/uL (1.20-3.40); #Monocytes 1.1 thou/uL (0.11-0.59); #Neutrophils 9.1 thou/uL (1.40-6.50); %Basophils 0.3 % (0.0-1.0); %Eosinophils 3.2 % (0.0-10.0); %Lymphocytes 14.7 % (21.0-51.0); %Monocytes 8.8 % (0.0-10.0); Hemoglobin 9.3 g/dL (14.0-18.0); Mean Corpuscular HGB CONC 32.6 g/dL (32.0-36.0); Mean Corpuscular Hemoglobin 30.6 pg (27.0-31.0); Mean Platelet Volume 6.3 fL (7.4-10.4); Platelet Count 594 thou/uL (130-400); RBC Distribution Width 13.6 % (11.5-14.5); Red Blood Cell (RBC) Count 3.03 mill/uL (4.70-6.10); White Blood Cell (WBC) Count 12.5 thou/uL (4.8-10.8)
[2021-03-23 08:41] LABS: Anion Gap 10 mmol/L (10-20); BUN (Urea Nitrogen) 12 mg/dL (8.9-20.6); Calc. Creatinine Clearance 204 mL/min (70-130); Carbon Dioxide 25 mmol/L (22-29); Chloride 105 mmol/L (98-107); Glucose 80 mg/dL (70-105); Potassium 4.2 mmol/L (3.5-5.1); Sodium 136 mmol/L (136-145)
[2021-03-23] MEDS: Enoxaparin Sodium 40 MG/0.4 ML SYRINGE SC SCH (09:07)
[2021-03-23] MEDS: Saccharomyces boulardii 250 MG CAP PO SCH (09:08)
[2021-03-23] MEDS: Multivit, Therapeutic 1 TAB PO SCH (09:08)
[2021-03-23] MEDS: Sulfameth/Trimethoprim DS 800-160mg TAB PO SCH ×2 (09:08→20:22)
[2021-03-23] MEDS: Ferrous Sulfate 325 MG TAB PO SCH ×2 (09:08→17:44)
[2021-03-23] MEDS: Ascorbic Acid 500 mg Chewable Tablet PO SCH ×2 (09:09→20:20)
[2021-03-23] MEDS: Pregabalin 75 MG CAP PO SCH ×2 (09:09→20:21)
[2021-03-23] MEDS: Thiamine 100 MG TAB PO SCH (09:09)
[2021-03-23] MEDS: Pantoprazole 40 MG VIAL IVP SCH ×2 (09:09→20:21)
[2021-03-23] MEDS: Folic Acid 1 MG TAB PO SCH (09:09)
[2021-03-23] MEDS: Polyethylene Glycol 3350 17 GM Packet PO SCH (10:32)
[2021-03-23] MEDS: Senokot S 8.6-50 MG TAB PO SCH ×2 (10:32→20:21)
[2021-03-23] MEDS: Cyclobenzaprine 10 MG TAB PO PRN (20:22)
[2021-03-24] MEDS: Ibuprofen 200 MG TAB PO SCH ×4 (02:51→20:16)
[2021-03-24] MEDS: Acetaminophen 500 MG TAB PO SCH ×3 (05:11→17:38)
[2021-03-24] MEDS: traMADol HCl 50 MG TAB PO SCH ×3 (05:11→17:38)
[2021-03-24] MEDS: cloNIDine 0.1 MG TAB PO SCH ×3 (05:11→17:38)
[2021-03-24 05:41] LABS: #Eosinphils 0.3 thou/uL (0.0-0.7); #Lymphocytes 1.9 thou/uL (1.20-3.40); #Neutrophils 5.9 thou/uL (1.40-6.50); %Basophils 0.4 % (0.0-1.0); %Eosinophils 3.4 % (0.0-10.0); %Monocytes 10.9 % (0.0-10.0); %Neutrophils 64.3 % (42.0-75.0); Hemoglobin 8.4 g/dL (14.0-18.0); Mean Corpuscular HGB CONC 33.9 g/dL (32.0-36.0); Mean Corpuscular Hemoglobin 31.8 pg (27.0-31.0); Mean Corpuscular Volume 93.8 fL (78.0-98.0); Mean Platelet Volume 6.6 fL (7.4-10.4); Platelet Count 626 thou/uL (130-400); RBC Distribution Width 13.3 % (11.5-14.5); Red Blood Cell (RBC) Count 2.63 mill/uL (4.70-6.10); White Blood Cell (WBC) Count 9.1 thou/uL (4.8-10.8)
[2021-03-24] MEDS: Saccharomyces boulardii 250 MG CAP PO SCH (09:58)
[2021-03-24] MEDS: Pregabalin 75 MG CAP PO SCH ×2 (09:58→20:16)
[2021-03-24] MEDS: Ascorbic Acid 500 mg Chewable Tablet PO SCH ×2 (09:58→20:15)
[2021-03-24] MEDS: Thiamine 100 MG TAB PO SCH (09:58)
[2021-03-24] MEDS: Sulfameth/Trimethoprim DS 800-160mg TAB PO SCH ×2 (09:58→20:15)
[2021-03-24] MEDS: Ferrous Sulfate 325 MG TAB PO SCH ×2 (09:58→17:38)
[2021-03-24] MEDS: Multivit, Therapeutic 1 TAB PO SCH (09:59)
[2021-03-24] MEDS: Enoxaparin Sodium 40 MG/0.4 ML SYRINGE SC SCH (09:59)
[2021-03-24] MEDS: Pantoprazole 40 MG VIAL IVP SCH ×2 (09:59→20:16)
[2021-03-24] MEDS: Folic Acid 1 MG TAB PO SCH (09:59)
[2021-03-24] MEDS: Polyethylene Glycol 3350 17 GM Packet PO SCH (10:47)
[2021-03-24] MEDS: Senokot S 8.6-50 MG TAB PO SCH ×2 (10:47→20:28)
[2021-03-24] MEDS: Silver Sulfadiazine 50 GM TUBE TOP SCH ×2 (10:47→20:17)
[2021-03-24] MEDS ORDERED: Aspirin 81 mg Enteric Coated Tablet PO SCH (17:30)
[2021-03-24] MEDS: Aspirin 81 mg Enteric Coated Tablet PO SCH (20:15)
[2021-03-25] MEDS: Acetaminophen 500 MG TAB PO SCH ×3 (00:03→12:05)
[2021-03-25] MEDS: cloNIDine 0.1 MG TAB PO SCH ×3 (00:03→12:04)
[2021-03-25] MEDS: traMADol HCl 50 MG TAB PO SCH ×3 (00:04→12:05)
[2021-03-25] MEDS: Ibuprofen 200 MG TAB PO SCH ×3 (02:34→15:53)
[2021-03-25] MEDS: Saccharomyces boulardii 250 MG CAP PO SCH (08:35)
[2021-03-25] MEDS: Pregabalin 75 MG CAP PO SCH (08:36)
[2021-03-25] MEDS: Aspirin 81 mg Enteric Coated Tablet PO SCH (08:36)
[2021-03-25] MEDS: Sulfameth/Trimethoprim DS 800-160mg TAB PO SCH (08:36)
[2021-03-25] MEDS: Multivit, Therapeutic 1 TAB PO SCH (08:36)
[2021-03-25] MEDS: Pantoprazole 40 MG VIAL IVP SCH (08:37)
[2021-03-25] MEDS: Ascorbic Acid 500 mg Chewable Tablet PO SCH (08:37)
[2021-03-25] MEDS: Silver Sulfadiazine 50 GM TUBE TOP SCH (08:37)
[2021-03-25] MEDS: Folic Acid 1 MG TAB PO SCH (08:37)
[2021-03-25] MEDS: Enoxaparin Sodium 40 MG/0.4 ML SYRINGE SC SCH (08:37)
[2021-03-25] MEDS: Thiamine 100 MG TAB PO SCH (08:37)
[2021-03-25] MEDS: Polyethylene Glycol 3350 17 GM Packet PO SCH (08:38)
[2021-03-25] MEDS: Senokot S 8.6-50 MG TAB PO SCH (08:38)
[2021-03-25] MEDS: Ferrous Sulfate 325 MG TAB PO SCH (10:02)
[2021-03-25] MEDS: Cyclobenzaprine 10 MG TAB PO PRN (10:02)
[2021-03-25 11:20] VITALS: BP 139/72; TEMP 98
== END 2021-03-25 15:58 | disposition home or self-care (01) | DRG 163 ==
LOC: ERS 02:03 → CCU 03:49 → SURG B 03-11 17:19
PROVIDERS: ADMIT Surgery; ATTEND Surgery
PROC: 0W9B30Z Drainage of Left Pleural Cavity with Drainage Device, Percutaneous Approach (ICD-10-PCS; 2021-03-10)
PROC: 0W9930Z Drainage of Right Pleural Cavity with Drainage Device, Percutaneous Approach (ICD-10-PCS; 2021-03-13)
PROC: 0D9670Z Drainage of Stomach with Drainage Device, Via Natural or Artificial Opening (ICD-10-PCS; 2021-03-16)
PROC: 0BNL4ZZ Release Left Lung, Percutaneous Endoscopic Approach (ICD-10-PCS; principal; 2021-03-18)
PROC: 0B9P40Z Drainage of Left Pleura with Drainage Device, Percutaneous Endoscopic Approach (ICD-10-PCS; 2021-03-18)
DX: S27.2XXA Traumatic hemopneumothorax, initial encounter (principal); A41.01 Sepsis due to Methicillin susceptible Staphylococcus aureus; Z20.822 Contact with and (suspected) exposure to COVID-19; Z23 Encounter for immunization; S22.43XA Multiple fractures of ribs, bilateral, initial encounter for closed fracture; S12.600A Unspecified displaced fracture of seventh cervical vertebra, initial encounter for closed fracture; S32.029A Unspecified fracture of second lumbar vertebra, initial encounter for closed fracture; S22.21XA Fracture of manubrium, initial encounter for closed fracture; J91.8 Pleural effusion in other conditions classified elsewhere; K56.7 Ileus, unspecified; J98.11 Atelectasis; T79.7XXA Traumatic subcutaneous emphysema, initial encounter; S00.81XA Abrasion of other part of head, initial encounter; S30.811A Abrasion of abdominal wall, initial encounter; S81.012A Laceration without foreign body, left knee, initial encounter; S81.011A Laceration without foreign body, right knee, initial encounter; S61.412A Laceration without foreign body of left hand, initial encounter; F17.210 Nicotine dependence, cigarettes, uncomplicated; F12.10 Cannabis abuse, uncomplicated; F10.129 Alcohol abuse with intoxication, unspecified; Y90.6 Blood alcohol level of 120-199 mg/100 ml; V48.3XXA Unspecified car occupant injured in noncollision transport accident in nontraffic accident, initial encounter
CPT/HCPCS: 0240U; 36415; 70450; 71045; 71260; 72125; 74018; 74177; 80048; 80053; 80202; 80306; 80307; 83605; 83690; 83735; 84100; 85007; 85025; 85027; 87040; 87070; 87077; 87149; 87186; 87205; 90715; 93005; 93010; 94640; 96374; 96375; 96376; C9113; J0171; J0690; J0696; J1100; J1650; J1885; J2001; J2270; J2405; J2543; J2550; J2704; J2710; J3010; J3370; J3480; J3490; J7620; Q0162; Q9967; S0020; S0028